=== PATIENT | male | born 1945 | race Caucasian/White ===

== ENCOUNTER → 2017-07-03 07:51 | Outpatient (CLI) | payer OTHER, SELFPAY ==
[2017-07-03 08:33] LABS: Add Manual Diff / Slide Review NO; Basophils Percent Auto 0.4 % (0-2); Eosinophils Percent Auto 2.7 % (2-4); Hemoglobin 15.2 g/dL (13.5-17.5); Lymphocytes Percent Auto 27.2 % (25-40); Mean Corpuscular HGB Conc 34.6 % (30-36); Mean Corpuscular Hemoglobin 30.8 PG (26-34); Monocytes Percent Auto 9.5 % (3-14); Neutrophils Absolute Auto 4000 /uL (3000-5900); Neutrophils Percent Auto 60.2 % (50-75); Platelet Count 269 X10^3/uL (150-400); Red Blood Cell Count 4.94 X10^6/uL (4.5-5.9); Red Cell Distribution Width 12.9 % (11.6-14.8); White Blood Cell Count 6.6 X10^3/uL (4.5-11.0)
[2017-07-03 09:02] LABS: Alanine Aminotransferase 44 IU/L (21-72); Albumin 4.4 g/dL (3.5-5.0); Albumin Globulin Ratio 1.2 (1.0-2.8); Alkaline Phosphatase 72 U/L (38-126); Aspartate Aminotransferase 43 IU/L (17-59); BUN Creatinine Ratio 23.3 (6-22); Bilirubin Total 0.6 mg/dL (0.2-1.3); Cholesterol 228 mg/dL (140-199); Estimated Glomerular Filt Rate > 60.0 mL/min (>60); Globulin 3.6 g/dL (1.7-4.1); Glucose 98 mg/dL (80-110); HDL Cholesterol 60 mg/dL (40-60); HEMOLYSIS 17 (0-50); LDL Cholesterol Calculated 141 mg/dL (<100); Potassium 4.1 mmol/L (3.4-5.1); Sodium 142 mmol/L (137-145); Triglycerides 134 mg/dL (35-150)
[2017-07-03 09:33] LABS: Prostate Specific Antigen Scrn 0.871 ng/mL (0.1-4.0)
[2017-07-03 09:34] LABS: Thyroid Stimulating Hormone 2.57 uIU/mL (0.47-4.68)
== END ==
PROVIDERS: PCP Family Medicine; Visit Provider Family Medicine
DX: I10 Essential (primary) hypertension (principal); E78.5 Hyperlipidemia, unspecified; I87.302 Chronic venous hypertension (idiopathic) without complications of left lower extremity; N40.0 Benign prostatic hyperplasia without lower urinary tract symptoms
CPT/HCPCS: 36415; 80053; 80061; 84443; 85025; G0103

== ENCOUNTER → 2017-09-16 10:01 | Outpatient (CLI) | payer OTHER, SELFPAY ==
[2017-09-16 10:53] LABS: Add Manual Diff / Slide Review NO; Basophils Percent Auto 0.4 % (0-2); Eosinophils Percent Auto 3.1 % (2-4); Hematocrit 44.6 % (41-53); Hemoglobin 15.4 g/dL (13.5-17.5); Lymphocytes Percent Auto 23.2 % (25-40); Mean Corpuscular HGB Conc 34.5 % (30-36); Mean Corpuscular Hemoglobin 30.6 PG (26-34); Mean Corpuscular Volume 88.8 fL (80-100); Monocytes Percent Auto 9.5 % (3-14); Neutrophils Absolute Auto 5100 /uL (3000-5900); Neutrophils Percent Auto 63.8 % (50-75); Platelet Count 271 X10^3/uL (150-400); Red Blood Cell Count 5.02 X10^6/uL (4.5-5.9); Red Cell Distribution Width 13.2 % (11.6-14.8)
[2017-09-16 11:07] LABS: Alanine Aminotransferase 27 IU/L (21-72); Albumin 4.5 g/dL (3.5-5.0); Albumin Globulin Ratio 1.4 (1.0-2.8); Alkaline Phosphatase 69 U/L (38-126); Aspartate Aminotransferase 27 IU/L (17-59); BUN Creatinine Ratio 15.6 (6-22); Bilirubin Total 0.6 mg/dL (0.2-1.3); Blood Urea Nitrogen 14 mg/dL (9-20); Carbon Dioxide 31 mmol/L (22-32); Chloride 100 mmol/L (98-107); Cholesterol 199 mg/dL (140-199); Estimated Glomerular Filt Rate > 60.0 mL/min (>60); Globulin 3.3 g/dL (1.7-4.1); Glucose 97 mg/dL (80-110); HDL Cholesterol 43 mg/dL (40-60); HEMOLYSIS < 15 (0-50); LDL Cholesterol Calculated 122 mg/dL (<100); Potassium 3.9 mmol/L (3.4-5.1); Sodium 141 mmol/L (137-145); Total Protein 7.8 g/dL (6.3-8.2); Triglycerides 168 mg/dL (35-150)
== END ==
PROVIDERS: PCP Family Medicine
DX: K92.1 Melena (principal); E78.5 Hyperlipidemia, unspecified; I10 Essential (primary) hypertension
CPT/HCPCS: 36415; 80053; 80061; 85025

== ENCOUNTER → 2018-02-06 08:37 | Outpatient (CLI) | payer OTHER, SELFPAY ==
--- NOTE | 2018-02-06 08:51 | DI.RAD.S_ITS ---
PROCEDURE: XR CHEST 2V INDICATIONS: chest congestion and cough TECHNIQUE: 2 views of the chest were acquired. COMPARISON: None. FINDINGS: Surgical changes and devices: Sternotomy wires, heart valve centrally positioned over the heart.. Lungs and pleura: No pleural effusions or pneumothorax. Lungs are clear. Mediastinum: Mediastinal contours are normal. Heart size is normal. Bones and chest wall: No suspicious bony abnormalities. Soft tissues appear unremarkable. IMPRESSION: No pneumonia found. Prior heart valve replacement surgery. Dictated by: Brian Centeno M.D. on 02/06/2018 at 10:00 Approved by: Brian Centeno M.D. on 02/06/2018 at 10:01
== END ==
PROVIDERS: PCP Family Medicine; Visit Provider Physician Assistant
DX: R05 Cough (principal); Z95.2 Presence of prosthetic heart valve
CPT/HCPCS: 71046

== ENCOUNTER → 2018-02-18 09:37 | Outpatient (CLI) | payer OTHER, SELFPAY ==
[2018-02-18 10:49] LABS: Alanine Aminotransferase 31 IU/L (21-72); Albumin 4.3 g/dL (3.5-5.0); Albumin Globulin Ratio 1.2 (1.0-2.8); Alkaline Phosphatase 65 U/L (38-126); Aspartate Aminotransferase 29 IU/L (17-59); BUN Creatinine Ratio 16.7 (6-22); Bilirubin Total 0.5 mg/dL (0.2-1.3); Blood Urea Nitrogen 15 mg/dL (9-20); Calcium 9.1 mg/dL (8.4-10.2); Carbon Dioxide 29 mmol/L (22-32); Chloride 101 mmol/L (98-107); Cholesterol 245 mg/dL (140-199); Estimated Glomerular Filt Rate > 60.0 mL/min (>60); Globulin 3.5 g/dL (1.7-4.1); Glucose 96 mg/dL (80-110); HDL Cholesterol 49 mg/dL (40-60); HEMOLYSIS < 15 (0-50); LDL Cholesterol Calculated 173 mg/dL (<100); Potassium 4.4 mmol/L (3.4-5.1); Sodium 139 mmol/L (137-145); Total Protein 7.8 g/dL (6.3-8.2); Triglycerides 116 mg/dL (35-150)
[2018-02-18 11:38] LABS: Thyroid Stimulating Hormone 1.71 uIU/mL (0.47-4.68)
== END ==
PROVIDERS: PCP Family Medicine; Visit Provider Family Medicine
DX: I10 Essential (primary) hypertension (principal); Z51.81 Encounter for therapeutic drug level monitoring
CPT/HCPCS: 36415; 80053; 80061; 84443

== ENCOUNTER 2024-12-23 06:52 | Emergency (ER) | payer OTHER, SELFPAY ==
[2024-12-23] VITALS (14 sets, daily range): BP systolic 129–176; BP diastolic 65–99; PULSE 65–86; RESP 18; TEMP 37.1; O2SAT 91–97; BMI 28.1
--- NOTE | 2024-12-23 07:39 | ED_ITS ---
HPI - Neck Pain/Injury General Chief Complaint: Neck Pain/Injury Stated Complaint: Bilateral arm pain on and off 2 weeks Time Seen by Provider: 12/23/24 07:05 Mode of arrival: Ambulatory History of Present Illness HPI Narrative: patient here with his son. Complains 3 episodes of neck pain radiating into his shoulders down to his hands. 1St episode was 4 weeks ago and lasted a couple of days. Second episode was 2 weeks ago and then 3rd episode started yesterday. It always starts the same way with neck pain bilaterally radiating down to his hands. He has developed swelling to the right hand. He is right- handed. He worked with [employer] as an occupation. Patient states pain is worse neck movement. He tried changing pillows as he would wake up in the morning with worsening pain. 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 He does have history of essential tremor. No prior history of carpal tunnel or neck surgery. Patient in no distress at this time. Patient is being treated for a left lower extremity tendon injury that he is going to see Podiatry for. He has already had MRI for diagnosis Related Data Home Medications ?Medication ?Instructions ?Recorded ?Confirmed aspirin 325 mg tablet 325 mg PO QDAY ##0 04/04/16 08/31/18 hydrochlorothiazide 25 mg tablet 25 mg PO DAILY Previous Rx's ?Medication ?Instructions ?Recorded hydrocodone 5 mg-acetaminophen 325 1 tab PO Q6H PRN pa in #20 tabs 12/23/24 mg tablet ibuprofen 600 mg tablet 600 mg PO Q6H PRN fever or p ain 12/23/24 #24 tabs ondansetron 4 mg disintegrating 4 mg PO Q6H PRN nausea and 12/23/24 tablet vomiting #20 tabs Allergies Allergy/AdvReac Type Severity Reaction Status Date / Time Penicillins (PENICILLINS) Allergy Unknown Verified 12/23/24 07:02 Review of Systems Review of Systems Narrative: GENERAL: Negative chills, fatigue, malaise, fever, sweats. HEENT: Negative sinus pain, ear pain, sore throat RESPIRATORY: Negative dyspnea, cough CARDIOVASCULAR: Negative chest pain, palpitations GASTROINTESTINAL: Negative vomiting, nausea, abdominal pain : Negative dysuria, frequency, hematuria MUSCULOSKELETAL: Positive neck pain, muscle or bony pain SKIN: Negative rash, skin lesions NEUROLOGIC: Negative weakness, numbness ROS Unobtainable: All systems reviewed & are unremarkable except as noted in HPI and below Patient History Medical History (Updated 12/23/24 @ 08:43 by Dilshad Vega MD) Carotid artery disease (Unknown) H/O deep venous thrombosis (Unknown) Hypertension (Unknown) Hypercholesterolemia (Unknown) Aortic valve stenosis (Unknown) Hx of fracture of leg (1986) Chickenpox (~1950) Measles (~1950) Mumps (~1950) Surgical History 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 Mother No problems noted. Social History Smoking Status: Former smoker alcohol intake: never Smoking Status: Former smoker Exam Narrative Exam Narrative: GENERAL: in no distress, not toxic not dyspneic HEAD: Normocephalic. EYES: Pupils equal round ENT: Mucous membranes moist. NECK: Trachea midline. Patient does have pain when rotating head right and left and tilting up and down. There is tenderness to the bilateral paracervical muscles as well as trapezius muscles. CARDIOVASCULAR: Regular rate and rhythm RESPIRATORY: Clear to auscultation. Breath sounds equal bilaterally. No wheezes, rales, or rhonchi. GASTROINTESTINAL: Abdomen soft, non-tender BACK: No flank tenderness. EXTREMITIES: No gross deformities. Examination bilateral upper extremities. Right hand is more edematous dorsally compared to the left. However hands are warm soft pink brisk cap refills light touch intact bilateral fingers and thumb. 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 Patient does have pain on the shoulders with attempts to bring both hands above his head and has pain in the shoulders with internal external rotation and forward flexion and extension. As well as with abduction of the shoulders. Examination bilateral hands. Patient has a rest tremor which is not new. There is pain with Tinel and Phalen test. , strong radial pulse brisk cap refills NEURO: AOx4. Clear speech SKIN: Warm and dry PSYCH: Not anxious, is cooperative Initial Vital Signs Initial Vital Signs: Vital Signs Pulse Rate 86 12/23/24 06:57 Blood Pressure 176/99 H 12/23/24 06:57 Pulse Oximetry 97 12/23/24 06:57 Course Orders Ordered: ED Orders 12/23/24 07:54 XR cervical spine 2V or 3V Stat XR shoulder LT 2+ views Stat XR shoulder RT 2+ views Stat 12/23/24 08:24 Consult to CONTRACT ENGINEER - [employer] Stat Discontinued Medications Hydrocodone Bitart/Acetaminophen (Hydrocodone/Acet 5/325 Tablet) 1 tab PO NOW ONE Stop: 12/23/24 07:55 Last Admin: 12/23/24 08:07 Dose: 1 tab Documented By: MARGARET Ketorolac Tromethamine (Ketorolac 30 Mg/Ml Vial) 30 mg IM NOW ONE Stop: 12/23/24 07:55 Last Admin: 12/23/24 08:07 Dose: 30 mg Documented By: MARGARET Ondansetron HCl (Ondansetron 4 Mg Odt) 4 mg SL NOW ONE Stop: 12/23/24 07:55 Last Admin: 12/23/24 08:08 Dose: 4 mg Documented By: MARGARET Vital Signs Vital signs: Vital Signs - 8 hr 12/23/24 06:57 12/23/24 06:57 12/23/24 07:00 Temperature Pulse Rate 86 82 Respiratory Rate Blood Pressure 176/99 H Pulse Oximetry 97 97 Oxygen Delivery Method 12/23/24 07:00 12/23/24 07:02 12/23/24 07:30 Temperature 98.7 F Pulse Rate 85 73 Respiratory Rate 18 Blood Pressure 172/87 H 176/99 H Pulse Oximetry 97 96 Oxygen Delivery Method Room Air 12/23/24 07:30 12/23/24 08:00 12/23/24 08:00 Temperature Pulse Rate 73 Respiratory Rate Blood Pressure 141/74 H 138/77 Pulse Oximetry 94 Oxygen Delivery Method 12/23/24 08:47 12/23/24 09:00 12/23/24 09:30 Temperature Pulse Rate 72 73 72 Respiratory Rate Blood Pressure Pulse Oximetry 91 95 92 Oxygen Delivery Method 12/23/24 10:00 12/23/24 10:30 12/23/24 10:37 Temperature Pulse Rate 71 67 67 Respiratory Rate Blood Pressure Pulse Oximetry 92 94 95 Oxygen Delivery Method 12/23/24 10:37 12/23/24 11:00 12/23/24 11:00 Temperature Pulse Rate 65 Respiratory Rate Blood Pressure 129/66 134/82 Pulse Oximetry 95 Oxygen Delivery Method 12/23/24 11:30 12/23/24 12:00 12/23/24 12:00 Temperature Pulse Rate 71 67 Respiratory Rate Blood Pressure 136/65 Pulse Oximetry 96 96 Oxygen Delivery Method MDM - Neck Pain/Injury Imaging Data Extremity x-ray #1: Radiologist's Impression: [address] [address] XRay Report Signed Patient: Zach Reaves MR#: [id number] : 1945 Acct:[id number] Age/Sex: 79 / M Date of Service: 12/23/24 Loc: ED Accession Number: [id number] Procedure: XR shoulder RT 2+ views Ordering Provider: Dilshad Vega MD PROCEDURE: XR SHOULDER RT MIN 2V INDICATIONS: pain TECHNIQUE: 3 views of the shoulder were acquired. COMPARISON: None. FINDINGS: Bones: No fractures or dislocations. No suspicious bony lesions. Glenohumeral joint degenerative change. Visualized ribs appear intact. Soft tissues: No suspicious soft tissue calcifications. IMPRESSION: No acute bony abnormality. Dictated by: Mingo Rubin M.D. on 12/23/2024 at 8:54 Approved by: Mingo Rubin M.D. on 12/23/2024 at 8:54 Extremity x-ray #2: Radiologist's Impression: [address] [address] XRay Report Signed Patient: Zach Reaves MR#: [id number] : 1945 Acct:[id number] Age/Sex: 79 / M Date of Service: 12/23/24 Loc: ED Accession Number: [id number] Procedure: XR shoulder LT 2+ views Ordering Provider: Dilshad Vega MD PROCEDURE: XR SHOULDER LT MIN 2V INDICATIONS: pain TECHNIQUE: 3 views of the shoulder were acquired. COMPARISON: [facility], , XR SHOULDER RT 2+ VIEWS, 12/23/2024, 8:01. FINDINGS: Bones: No fractures or dislocations. Glenohumeral joint degenerative change. No suspicious bony lesions. Visualized ribs appear intact. Soft tissues: No suspicious soft tissue calcifications. IMPRESSION: No acute bony abnormality. Dictated by: Mingo Rubin M.D. on 12/23/2024 at 8:54 Approved by: Mingo Rubin M.D. on 12/23/2024 at 8:54 x-ray cervical spine: Radiologist's Impression: [address] [address] XRay Report Signed Patient: Zach Reaves MR#: [id number] : 1945 Acct:[id number] Age/Sex: 79 / M Date of Service: 12/23/24 Loc: ED Accession Number: [id number] Procedure: XR cervical spine 2V or 3V Ordering Provider: Dilshad Vega MD PROCEDURE: XR CERVICAL SPINE 2V OR 3V INDICATIONS: pain TECHNIQUE: 3 view(s) of the cervical spine were acquired. COMPARISON: None. FINDINGS: Bones: No fractures or dislocations to the T1 level. Cervical spondylosis. Multilevel facet arthropathy. Multilevel uncovertebral joint hypertrophy. The lateral masses of C1 appear intact on the odontoid view. No suspicious bony lesions. Soft tissues: No prevertebral soft tissue swelling. IMPRESSION: No displaced fracture or traumatic subluxation. Cervical spondylosis. Dictated by: Mingo uRbin M.D. on 12/23/2024 at 9:35 Approved by: Mingo Rubin M.D. on 12/23/2024 at 9:36 [facility] Narrative Medical decision making narrative: patient here with his son. Complains 3 episodes of neck pain radiating into his shoulders down to his hands. 1St episode was 4 weeks ago and lasted a couple of days. Second episode was 2 weeks ago and then 3rd episode started yesterday. It always starts the same way with neck pain bilaterally radiating down to his hands. He has developed swelling to the right hand. He is right- handed. He worked with fencing as an occupation. Patient states pain is worse neck movement. He tried changing pillows as he would wake up in the morning with worsening pain. 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 He does have history of essential tremor. No prior history of carpal tunnel or neck surgery. Patient in no distress at this time. Patient is being treated for a left lower extremity tendon injury that he is going to see Podiatry for. He has already had MRI for diagnosis MDM After history and exam, Toradol [place] Zofran x-rays cervical spine bilateral shoulders Differential considered: Includes but not limited to carpal tunnel syndrome cervical radiculopathy degenerative disc disease Medical records reviewed: no recent visit for this complaint Lab Test results independently reviewed as above. Pertinent findings: no blood work indicated given clinical presentation Imaging studies independently reviewed: x-ray bilateral shoulders and cervical spine no acute finding Consultations: plate worker helper Jennifer, has seen patient and son at request of son for any home health resources. Re-evaluations: 12:05 p.m.. Reviewed with patient and son exam findings and results of imaging. Patient likely has carpal tunnel syndrome complicated with cervical radiculopathy and likely rotator cuff Syndrome. You will need follow up with primary care for MRI of the cervical spine as well as shoulders and likely EMG for carpal tunnel evaluation. Short course of pain medication provided. No steroids as patient is healing from tendon injury. Prescription for ibuprofen will be provided as well. They desire discharge home. Pain is much better. He is gripping grabbing at the sheets much better. Social work has been involved Resources that son and patient rested. Discussion: Appropriate for discharge home. Patient feeling much better time of discharge. Likely has cervical radiculopathy with carpal tunnel syndrome and rotator cuff arthropathy. Diagnosis: carpal tunnel rotator cuff arthropathy cervical radiculopathy Discharge Plan Departure Patient Disposition: Home Clinical Impression: Cervical radiculopathy Acute carpal tunnel syndrome Qualifiers: Laterality: unspecified laterality Qualified Code(s): G56.00 - Carpal tunnel syndrome, unspecified upper limb Bilateral shoulder pain Qualifiers: Chronicity: unspecified Qualified Code(s): M25.511 - Pain in right shoulder Instructions: DI for Rotator Cuff Injury, DI for Carpal Tunnel Syndrome, DI for Cervical Radiculopathy Activity Restrictions/Additional Instructions: your symptoms are likely due to cervical radiculopathy, nerve compression from the neck down to your hands. In addition you may have problems with your rotator cuff of the shoulders complicating the pain in your arms and hands. You may be developing carpal tunnel syndrome in your hands as well. Please do read the discharge information printed for you. Family doctor for outpatient MRI of the shoulders and cervical spine as well as EMG for your evaluation of carpal tunnel. No driving operating machinery when taking prescribed pain medication. Return if worse if any questions or concerns Prescriptions: New hydrocodone-acetaminophen 5-325 mg tablet 1 tab PO Q6H PRN (Reason: pain) Qty: 20 0RF ibuprofen 600 mg tablet 600 mg PO Q6H PRN (Reason: fever or pain) Qty: 24 0RF ondansetron 4 mg tablet,disintegrating 4 mg PO Q6H PRN (Reason: nausea and vomiting) Qty: 20 0RF No Action aspirin 325 MG tablet 325 mg PO QDAY Qty: 0 hydrochlorothiazide 25 mg tablet 25 mg PO DAILY Stand Alone Forms: Patient Portal/API
--- NOTE | 2024-12-23 07:54 | DI.RAD.S_ITS ---
PROCEDURE: XR SHOULDER RT MIN 2V INDICATIONS: pain TECHNIQUE: 3 views of the shoulder were acquired. COMPARISON: None. FINDINGS: Bones: No fractures or dislocations. No suspicious bony lesions. Glenohumeral joint degenerative change. Visualized ribs appear intact. Soft tissues: No suspicious soft tissue calcifications. IMPRESSION: No acute bony abnormality. Dictated by: Mingo Rubin M.D. on 12/23/2024 at 8:54 Approved by: Mingo Rubin M.D. on 12/23/2024 at 8:54
--- NOTE | 2024-12-23 07:54 | DI.RAD.S_ITS ---
PROCEDURE: XR CERVICAL SPINE 2V OR 3V INDICATIONS: pain TECHNIQUE: 3 view(s) of the cervical spine were acquired. COMPARISON: None. FINDINGS: Bones: No fractures or dislocations to the T1 level. Cervical spondylosis. Multilevel facet arthropathy. Multilevel uncovertebral joint hypertrophy. The lateral masses of C1 appear intact on the odontoid view. No suspicious bony lesions. Soft tissues: No prevertebral soft tissue swelling. IMPRESSION: No displaced fracture or traumatic subluxation. Cervical spondylosis. Dictated by: Mingo Rubin M.D. on 12/23/2024 at 9:35 Approved by: Mingo Rubin M.D. on 12/23/2024 at 9:36
--- NOTE | 2024-12-23 07:54 | DI.RAD.S_ITS ---
PROCEDURE: XR SHOULDER LT MIN 2V INDICATIONS: pain TECHNIQUE: 3 views of the shoulder were acquired. COMPARISON: [facility], CR, XR SHOULDER RT 2+ VIEWS, 12/23/2024, 8:01. FINDINGS: Bones: No fractures or dislocations. Glenohumeral joint degenerative change. No suspicious bony lesions. Visualized ribs appear intact. Soft tissues: No suspicious soft tissue calcifications. IMPRESSION: No acute bony abnormality. Dictated by: Mingo Rubin M.D. on 12/23/2024 at 8:54 Approved by: Mingo Rubin M.D. on 12/23/2024 at 8:54
[2024-12-23] MEDS: KETOROLAC 30 MG/ML VIAL IM (08:07)
[2024-12-23] MEDS: ONDANSETRON 4 MG ODT SL (08:08)
--- NOTE | 2024-12-23 12:11 | CM.SWNOTE ---
ED COMMERCIAL LOAN SPECIALIST Note Patient is 79 y/o male who presents to ED via POV with son due to concern for bilateral arm, hand and shoulder pain. Patient endorses secondary concern for foot pain. Patient will see Podiatry on 12/28/24 Patient's PCP is Amanda Mcdonald NP at [facility], Patient has [employer] insurance and states that he is 100% covered through the [facility]. Patient's son requests COMMERCIAL LOAN SPECIALIST consult for resources regarding caregivers and support at home. COMMERCIAL LOAN SPECIALIST enters room to meet with patient, present in room is patient's son. Patient presents as A/Ox4. It is reported that patient resides in [place] in a trailer on son's property. It is reported that in recent months patient has been more sedentary due to foot pain and today experienced radiating pain in hands that made it difficult to use fine motor skills, grabbing and gripping things. Patient states at baseline he has some tremors and it is difficult to use a FWW or crutches. Patient is able to ambulate independently. Patient endorses that due to his tremor the type of food he can eat is limited. Patient endorses independence with ADLs at baseline but in the last few months, he has been struggling with getting dressed and cooking. Patient states he drives at baseline. It is reported that patient's son plans to build a tiny home for patient on their property but they are awaiting permits. COMMERCIAL LOAN SPECIALIST discusses caregivers vs. Home health. Patient and son endorse their interest for caregivers. Patient and son inquire about VA covered caregiving. COMMERCIAL LOAN SPECIALIST provides patient and son with [place] local resources, senior resource guide, and lists of private pay caregivers for [facility]. COMMERCIAL LOAN SPECIALIST refer patient for service support and meals on wheels with [facility]. COMMERCIAL LOAN SPECIALIST calls patient's [facility] clinic regarding patient's presentation to the ED and informs them of patient seeking caregiver and [facility] coverage. Patient endorses that he will plan to f/u with PCP and has upcoming podiatry appt as well. Patient's son endorses that patient will stay at their home this weekend. ED provider prescribes pain medications upon d/c to manage pain. Plan: patient to dc/ to home upon medical clearance. Patient and son to f/u with resources provided, f/u with PCP, outpatient providers and the [facility]. [place]
== END 2024-12-23 12:26 | disposition home or self-care (01) ==
PROVIDERS: Emergency Provider Emergency Medicine
DX: M54.12 Radiculopathy, cervical region (principal); G56.01 Carpal tunnel syndrome, right upper limb; M25.511 Pain in right shoulder; M25.512 Pain in left shoulder
CPT/HCPCS: 72040; 73030; 96372; 99283; 99284; J1885